=== PATIENT | female | born 1955 | race Hispanic/Latino ===

== ENCOUNTER 2017-09-09 13:13 | Emergency (ER) | payer OTHER ==
[~2017-09-09] VITALS: Ht 144.8 cm; Wt 97.1 kg
[~2017-09-09 13:13] MED LIST: ATORVASTATIN CA20 MG PO; ATORVASTATIN CA40 MG; CLOPIDOGREL75 MG PO; DICYCLOMINE; DICYCLOMINE PO; DOXAZOSIN PO; ENALAPRIL MALEA20 MG PO; FENOFIBRATE145 MG PO; GABAPENTIN300 MG PO; LASIX20 MG PO; METFORMIN HCL500 MG PO; METOPROLOL ER PO; NOVOLOG MI100 UNITS/ SQ; PANTOPRAZOLE SO40 MG PO; PEPCID20 MG PO; SIMVASTATIN40 MG PO; ULTRAM50 MG PO; VESICARE5 MG PO; ZOFRAN ODT4 MG PO
[2017-09-09] MEDS ORDERED: ACETAMINOPHEN 325 MG TAB PO ONE (13:45)
--- NOTE | 2017-09-09 14:24 | Diagnostic Imaging Report ---
History:Dizziness, near syncope 3 times, headache Comparison studies:CT head 06/27/2015 Technique: Axial images were obtained from the skull base to the vertex. Coronal and sagittal images reconstructed from the axial data. Intravenous contrast: None Findings: Scalp/skull: Right frontal scalp focal subcentimeter calcification. No fracture. Extra-axial spaces: No masses. No fluid collections. Brain sulci: Mildly prominent. Ventricles: Mild compensatory dilatation. No hydrocephalus. Parenchyma: Few hypodensities in the supratentorial white matter are small vessel ischemic changes. No masses, hemorrhage, acute or chronic cortical vascular insults. Sellar/suprasellar region: No abnormalities. Craniocervical junction: Patent foramen magnum. No Chiari one malformation. Incidental findings: Atherosclerotic calcifications in the carotid siphons . Mild exophthalmos. Impression: No acute abnormalities. Chronic findings: 1. Mild generalized volume loss. 2. Mild supratentorial white matter small vessel ischemic changes. Signed by: DR Kurt Mike M.D. on 09/09/2017 2:21 PM
[2017-09-09 14:55] LABS: BASOPHILS # (AUTO) 0.1 (0.0-0.1); BASOPHILS % 0.7 % (0.0-1.0); EOSINOPHILS # (AUTO) 0.3 (0.0-0.4); EOSINOPHILS % 3.7 % (0.0-6.0); HEMOGLOBIN 11.1 g/dL (12.0-16.0); LYMPHOCYTES # (AUTO) 1.9 (1.0-3.2); LYMPHOCYTES % 27.5 % (18.0-39.1); MEAN CORPUSCULAR HEMOGLOBIN 28.5 pg (28-32); MEAN CORPUSCULAR HGB CONC 32.6 g/dL (31-35); MEAN CORPUSCULAR VOLUME 87.4 fL (81-99); MONOCYTES # (AUTO) 0.5 (0.2-0.8); MONOCYTES % 6.5 % (4.4-11.3); NEUTROPHILS # (AUTO) 4.3 (2.1-6.9); NEUTROPHILS % 61.3 % (38.7-80.0); PLATELET COUNT 231 x10e3/uL (140-360); RED BLOOD COUNT 3.89 x10e6/uL (3.6-5.1); RED CELL DISTRIBUTION WIDTH 12.9 % (11.7-14.4)
[2017-09-09 15:07] LABS: PROTHROMBIN TIME 12.4 seconds (11.9-14.5)
[2017-09-09 15:08] LABS: PARTIAL THROMBOPLASTIN TIME 24.3 seconds (23.8-35.5)
[2017-09-09 15:17] LABS: ALBUMIN 3.5 g/dL (3.5-5.0); ALBUMIN/GLOBULIN RATIO 1.1 (0.8-2.0); ANION GAP 12.5 mmol/L (8-16); CALCIUM 9.8 mg/dL (8.4-10.2); CREATININE, SERUM 1.13 mg/dL (0.57-1.11); POTASSIUM 4.5 mmol/L (3.5-5.1)
[2017-09-09 16:51] VITALS: BP 166/69
== END 2017-09-09 17:03 | disposition home or self-care (01) ==
LOC: ER 13:13
DX: R51 Headache (principal); I10 Essential (primary) hypertension; E11.9 Type 2 diabetes mellitus without complications; J44.9 Chronic obstructive pulmonary disease, unspecified
CPT/HCPCS: 36415; 70450; 80053; 85025; 85610; 85730; 93005; 99284

== ENCOUNTER 2019-03-03 13:00 | Observation (INO) | payer OTHER ==
[~2019-03-03] VITALS: Ht 144.8 cm; Wt 98.2 kg
--- OUTSIDE RECORDS SUMMARY | 2019-03-03 13:05 | XMS REPORT ---
Author Author [facility] Address Unknown Phone Unavailable Care Team Providers Care Manager Social Services Name Role Phone Kaitlin VIVAS Unavailable Unavailable Payers Payer Name Policy Type Policy Number Effective Date Expiration Date Problems This patient has no known problems. Allergies, Adverse Reactions, Alerts Allergy Name Allergy Type Status Severity Reaction(s) Onset Date Inactive Date Treating Clinician Comments No Known Allergies DA Active U 2018-08-21 00:00:00 No Known Allergies DA Active U 2011-02-21 00:00:00 Medications This patient has no known medications. Results Test Description Test Time Test Comments Text Results Atomic Results Result Comments - CT HEAD/BRAIN W/O CONT 2018-08-31 14:29:00 Name: CAR ALEMAN [facility] : 1955 Age/S: 62 / F [address] [place] [address] Unit #: [id number] Loc: [place] [address] Phys: Juan Pastor MD Acct: [id number] Dis Date: Status: REG ER PHONE #: [phone] Exam Date: 08/31/2018 1410 FAX #: [phone] Reason: hx of stroke and felt weak EXAMS: CPT CODE: [id number] CT HEAD/BRAIN W/O CONT 08380 PROCEDURE: CT HEAD WITHOUT CONTRAST INDICATION: Weakness. Hypoglycemia. Hypertension. COMPARISON: None. TECHNIQUE: Noncontrast helical imaging performed skull base to the vertex. Multiplanar reformations are obtained. CT imaging performed at this location utilizes radiation dose optimization techniques which include one or more of the following: -Automated exposure control -Adjustment of the mA and/or kV according to patient size -Use of iterative reconstruction technique CT Radiation Dose DLP 419.70 mGy-cm FINDINGS: BRAIN PARENCHYMA: There are generalized involutional changes. Scattered areas of diminished attenuation in the cerebral white matter bilateral. Disease involves the white matter tracts. The cerebral cortical architecture is maintained. No intra-axial or extra-axial hemorrhage, mass lesion or mass effect. Calcified plaque cavernous carotid arteries and vertebral arteries. VENTRICLES: The ventricular system is normal. The basilar cisterns are normal. ORBITS, MASTOIDS AND PARANASAL SINUSES: The visualized orbits and paranasal sinuses are unremarkable. The mastoid air cells are clear. SKULL: The calvarium is intact. IMPRESSION: 1. No hemorrhage, mass lesion or evidence of acute infarct. 2. Chronic microvascular ischemic changes. If there is continued clinical concern, further imaging options would include MRI. SL: [id number] at 1429 Reported and signed by: Cristofer Cabrera M.D. PAGE 1 Signed Report (CONTINUED) Name: CAR THOMPSON [facility] : 1955 Age/S: 62 / F [address] [place] [address] Unit #: [id number] Loc: [place] [address] Phys: Juan Pastor MD Acct: [id number] Dis Date: Status: REG ER PHONE #: [phone] Exam Date: 08/31/2018 1410 FAX #: [phone] Reason: hx of stroke and felt weak EXAMS: CPT CODE: [id number] CT HEAD/BRAIN W/O CONT 49816 <Continued> CC: Soha Rodriguez MD; Juan Pastor MD Technologist:Justine Castro RT(R)(CT); Aguila Riddle CTDI: DLP: Trnscb Date/Time: 08/31/2018 (1429) Khang Orig Print D/T: S: 08/31/2018 (1113) CTDI: DLP: PAGE 2 Signed Report B-TYPE NATRIURETIC PEPTIDE 2018-08-31 13:40:00 B-TYPE NATRIURETIC PEPTIDE (test code=BNP) 44.2 PG/ML 0-100 CBC W/AUTO [id number] 12:52:00* Test Item Value Reference Range Comments WHITE BLOOD CELL (test code=WBC) 9.88 x10 3/uL 4.5-11.0 RED BLOOD CELL (test code=RBC) 3.74 x10 6/uL 3.54-5.02 HEMOGLOBIN (test code=HGB) 10.4 g/dL 11.0-15.0 HEMATOCRIT (test code=HCT) 32.8 % 33.0-45.0 MEAN CELL VOLUME (test code=MCV) 87.7 fL 81.0-99.0 MEAN CELL HGB (test code=MCH) 27.8 pg 27.0-33.0 MEAN CELL HGB CONCETRATION (test code=MCHC) 31.7 g/dL 33.0-37.0 RED CELL DISTRIBUTION WIDTH CV (test code=RDW) 13.2 % 11.5-14.5 RED CELL DISTRIBUTION WIDTH SD (test code=RDW-SD) 42.1 fL 37.0-54.0 PLATELET COUNT (test code=PLT) 272 x10 3/uL 150-400 MEAN PLATELET VOLUME (test code=MPV) 10.9 fL 7.0-9.0 NEUTROPHIL % (test code=NT%) 73.9 % 56.0-77.0 IMMATURE GRANULOCYTE % (test code=IG%) 0.3 % 0.0-2.0 LYMPHOCYTE % (test code=LY%) 15.3 % 14.0-32.0 MONOCYTE % (test code=MO%) 6.7 % 4.8-9.0 EOSINOPHIL % (test code=EO%) 3.3 % 0.3-3.7 BASOPHIL % (test code=BA%) 0.5 % 0.0-2.0 NUCLEATED RBC % (test code=NRBC%) 0.0 % 0-0 NEUTROPHIL # (test code=NT#) 7.30 x10 3/uL 2.0-7.6 IMMATURE GRANULOCYTE # (test code=IG#) 0.03 x10 3/uL 0.00-0.03 LYMPHOCYTE # (test code=LY#) 1.51 x10 3/uL 1.0-3.8 MONOCYTE # (test code=MO#) 0.66 x10 3/uL 0.1-0.8 EOSINOPHIL # (test code=EO#) 0.33 x10 3/uL 0.0-0.2 BASOPHIL # (test code=BA#) 0.05 x10 3/uL 0.0-0.2 NUCLEATED RBC # (test code=NRBC#) 0.00 x10 3/uL 0.0-0.1 MANUAL DIFF REQUIRED (test code=MDIFF) NO TROPONIN-I [id number] 12:47:00* Test Item Value Reference Range Comments TROPONIN-I RAPID (test code=TROPIRAP) 0.00 ng/mL 0.00-0.08 Performed by certified cold molding press operator at [facility] Negative: <=0.08 Positive: >=0.09An elevated troponin value alone is not sufficient todiagnose a myocardial infarction. Rather, the patient sclinical presentation (history, physical exam) and ECGshould be used in conjunction with troponin in thediagnostic evaluation of suspected myocardial infarction. Aserial sampling protocol is recommended to facilitate the identification of temporal changes in troponin levels characteristic of [place]. - XR CHEST 1 [id number] 12:34:00 FAX: Eddy Rodriguez Si [phone] [place]: St: PRE FAX: Juan Dye MD [phone] Name: CAR ALEMAN [facility] : 1955 Age/S: 62/F [address] [place] [address] Unit #: [id number] Loc: [address] [place] [id number] Phys: Juan Pastor MD Acct: [id number] Dis Date: Status: PRE ER PHONE #: [phone] Exam Date: 08/31/2018 1223 FAX #: [phone] Reason: Chest Pain EXAMS: CPT CODE: [id number] XR CHEST 1 V 44053 CHEST 1 VIEW: 08/31/2018 COMPARISON: October 01, 2011 CLINICAL HISTORY: Chest Pain FINDINGS: Cardiomediastinal silhouette is mildly prominent but stable in size. Lung volumes are low. There is minor bilateral interstitial prominence which may be secondary to the poor inspiration. Mild interstitial edema/interstitial pneumonitis is not excluded. No focal consolidation is seen. No evidence of pneumothorax and/or pneumomediastinum. IMPRESSION: Expiratory chest with mild bilateral vasc ular/interstitial prominence. Please see above for details. Mild cardiomegaly. at 1234 Reported and signed by: Lev ruth M.D. CC: Soha Rodriguez MD; Juan Pastor MD Technologist: Mark Jay RT(R) Trnscrd Date/Time/By: 08/31/2018 (1233) : By: [email or web address] Orig Print D/T: S: (1961) PAGE 1 Signed Repo rt CHEMISTRY 8 [id number] 12:30:00* Test Item Value Reference Range Comments ISTAT-SODIUM (test code=NAP) MMOL/L 134-147 ISTAT-POTASSIUM (test code=KP) MMOL/L 3.4-5.0 ISTAT-CHLORIDE (test code=CLP) MMOL/L 100-108 ISTAT CARBON DIOXIDE (test code=ISTAT-CO2) mmol/L 21-33 ISTAT CALCIUM IONIZED (test code=ISTAT-FILIPE) MG/DL 1.12-1.32 ISTAT-GLUCOSE (test code=GLUP) MG/DL 70-110 ISTAT-BUN (test code=BUNP) MG/DL 7-18 BEDSIDE CREATININE (test code=CREATBED) MG/DL 0.6-1.3 GLOMERULAR FILTRATION RATE POC (test code=GFRBED) 40 ML/MIN CHEMISTRY 8 [id number] 12:30:00* Test Item Value Reference Range Comments ISTAT-SODIUM (test code=NAP) 140 MMOL/L 134-147 ISTAT-POTASSIUM (test code=KP) 4.2 MMOL/L 3.4-5.0 ISTAT-CHLORIDE (test code=CLP) 102 MMOL/L 100-108 Performed by certified cold molding press operator at [facility] ISTAT CARBON DIOXIDE (test code=ISTAT-CO2) 29.0 mmol/L 21-33 ISTAT CALCIUM IONIZED (test code=ISTAT-FILIPE) 1.16 MG/DL 1.12-1.32 ISTAT-GLUCOSE (test code=GLUP) 196 MG/DL 70-110 ISTAT-BUN (test code=BUNP) 27 MG/DL 7-18 BEDSIDE CREATININE (test code=CREATBED) 1.4 MG/DL 0.6-1.3 GLOMERULAR FILTRATION RATE POC (test code=GFRBED) 40 ML/MIN [id number] 12:25:00* Test Item Value Reference Range Comments GLUBED (test code=GLUBED) 50 MG/DL 70-110 Performed by certified cold molding press operator at [facility] [id number] 06:04:00* Test Item Value Reference Range Comments GLUBED (test code=GLUBED) 101 MG/DL 70-110 Performed by certified cold molding press operator at [facility] URINALYSIS [id number] 05:07:00* Test Item Value Reference Range Comments UA COLOR (test code=COLU) YELLOW YEL/STRAW UA APPEARANCE (test code=APPU) CLOUDY CLEAR UA GLUCOSE DIPSTICK (test code=DGLUU) 1+ NEGATIVE UA BILIRUBIN DIPSTICK (test code=BILU) NEGATIVE NEGATIVE UA KETONE DIPSTICK (test code=KETU) NEGATIVE NEGATIVE UA SPECIFIC GRAVITY (test code=SGU) 1.008 1.005-1.030 UA BLOOD DIPSTICK (test code=AB) 1+ NEGATIVE UA PH DIPSTICK (test code=DOROTHY) 5.0 5.0-7.0 UA PROTEIN DIPSTICK (test code=PROU) 2+ NEGATIVE UA UROBILINIOGEN DIPSTICK (test code=URO) 0.2 mg/dL 0.2-1.0 UA NITRITE DIPSTICK (test code=YONY) NEGATIVE NEGATIVE UA LEUKOCYTE ESTERASE DIPSTICK (test code=LEUU) NEGATIVE NEGATIVE UA WBC (test code=WBCU) 4-9 WBC/HPF 0-3 UA RBC (test code=RBCU) 0-3 RBC/HPF 0-3 UA BACTERIA (test code=BACU) 1+ /HPF NONE SEEN UA SQUAMOUS CELLS (test code=SQU) 0-5 /HPF NONE SEEN UA YEAST (BUDDING) (test code=YEASTUBD) 3+ /HPF NONE COMPREHENSIVE METABOLIC [id number] 04:38:00* Test Item Value Reference Range Comments SODIUM (test code=NA) 144 mEq/L 134-147 POTASSIUM (test code=K) 4.1 mEq/L 3.4-5.0 CHLORIDE (test code=CL) 110 mEq/L 100-108 CARBON DIOXIDE (test code=CO2) 31 mEq/L 21-33 ANION GAP (test code=GAP) 7 0-20 GLUCOSE (test code=GLU) 111 mg/dL 70-110 BLOOD UREA NITROGEN (test code=BUN) 33 mg/dL 7-18 GLOMERULAR FILTRATION RATE (test code=GFR) 41.5 80-90 Units of measure=ml/min/1.73 m2 CREATININE (test code=CREAT) 1.3 mg/dL 0.6-1.3 TOTAL PROTEIN (test code=PROT) 7.0 g/dL 6.4-8.2 ALBUMIN (test code=ALB) 3.40 g/dL 3.4-5.0 CALCIUM (test code=CA) 8.7 mg/dL 8.0-10.5 BILIRUBIN TOTAL (test code=BILT) 0.20 mg/dL 0.0-1.0 SGOT/AST (test code=AST) 20 IUnit/L 15-37 SGPT/ALT (test code=ALT) 21 IUnit/L 15-65 ALKALINE PHOSPHATASE TOTAL (test code=ALKP) 88 IUnit/L 20-125 CBC W/AUTO [id number] 04:13:00* Test Item Value Reference Range Comments WHITE BLOOD CELL (test code=WBC) 9.20 x10 3/uL 4.5-11.0 RED BLOOD CELL (test code=RBC) 3.96 x10 6/uL 3.54-5.02 HEMOGLOBIN (test code=HGB) 11.1 g/dL 11.0-15.0 HEMATOCRIT (test code=HCT) 35.3 % 33.0-45.0 MEAN CELL VOLUME (test code=MCV) 89.1 fL 81.0-99.0 MEAN CELL HGB (test code=MCH) 28.0 pg 27.0-33.0 MEAN CELL HGB CONCETRATION (test code=MCHC) 31.4 g/dL 33.0-37.0 RED CELL DISTRIBUTION WIDTH CV (test code=RDW) 13.2 % 11.5-14.5 RED CELL DISTRIBUTION WIDTH SD (test code=RDW-SD) 42.9 fL 37.0-54.0 PLATELET COUNT (test code=PLT) 259 x10 3/uL 150-400 MEAN PLATELET VOLUME (test code=MPV) 10.8 fL 7.0-9.0 NEUTROPHIL % (test code=NT%) 64.3 % 56.0-77.0 IMMATURE GRANULOCYTE % (test code=IG%) 0.3 % 0.0-2.0 LYMPHOCYTE % (test code=LY%) 22.4 % 14.0-32.0 MONOCYTE % (test code=MO%) 8.3 % 4.8-9.0 EOSINOPHIL % (test code=EO%) 4.2 % 0.3-3.7 BASOPHIL % (test code=BA%) 0.5 % 0.0-2.0 NUCLEATED RBC % (test code=NRBC%) 0.0 % 0-0 NEUTROPHIL # (test code=NT#) 5.91 x10 3/uL 2.0-7.6 IMMATURE GRANULOCYTE # (test code=IG#) 0.03 x10 3/uL 0.00-0.03 LYMPHOCYTE # (test code=LY#) 2.06 x10 3/uL 1.0-3.8 MONOCYTE # (test code=MO#) 0.76 x10 3/uL 0.1-0.8 EOSINOPHIL # (test code=EO#) 0.39 x10 3/uL 0.0-0.2 BASOPHIL # (test code=BA#) 0.05 x10 3/uL 0.0-0.2 NUCLEATED RBC # (test code=NRBC#) 0.00 x10 3/uL 0.0-0.1 MANUAL DIFF REQUIRED (test code=MDIFF) NO [id number] 04:03:00* Test Item Value Reference Range Comments GLUBED (test code=GLUBED) 102 MG/DL 70-110 Performed by certified cold molding press operator at [facility] CT BRAIN WO [facility] [address] [address] Patient Name: CAR ALEMAN MR #: [id number] : 1955 Age/Sex: 61/F Req #: [id number] Adm Physician: Ordered by: ALISSON IBRAHIM NP Report #: [id number] Location: ER Room/Bed: Procedure: [id number] CT/CT BRAIN WO Exam Da te: 09/09/17 Exam Time: 1340 REPORT STATUS: Sig tank History:Dizziness, near syncope 3 times, headache Comparison studies:CT head 06/27/2015 Technique: Axial images were obtained from the skull base to the vertex. Coronal and sagittal images reconstructed from the axial data. Intravenous contrast: None Findings: Scalp/skull: Right frontal scalp focal subcentimeter calcification. No fracture. Extra-axial spaces: No masses. No fluid collections. Brain sulci: Mildly prominent. Ventri cles: Mild compensatory dilatation. No hydrocephalus. Parenchyma: Few hy podensities in the supratentorial white matter are small vessel ischemic pepper es. No masses, hemorrhage, acute or chronic cortical vascular insults. Sell ar/suprasellar region: No abnormalities. Craniocervical junction: Patent mejia en magnum. No Chiari one malformation. Incidental findings: Atherosclero tic calcifications in the carotid siphons . Mild exophthalmos. Impress ion: No acute abnormalities. Chronic findings: 1. Mild generalized volume loss. 2. Mild supratentorial white matter small vessel ischemic change s. Signed by: DR Kurt Mike M.D. on 09/09/2017 2:21 PM Dict ated By: KURT MIGUEL MD 1421 Transcribed By: ARIS on 09/09/17 1421 COPY TO: ALISSON JOSHI [employer]ATERPROO[employer] COATING MACHINE TENDER
[2019-03-03] MEDS ORDERED: SODIUM CHLORIDE 0.9% 1000ML 1,000 ML IV STA ×2 (14:14→16:10)
[2019-03-03] MEDS ORDERED: ONDANSETRON HCL INJ 2MG/ML 2ML 2 MG/ML VIAL IV ONE ×2 (14:30→16:10)
[2019-03-03 15:09] LABS: BILIRUBIN,URINE NEGATIVE (NEGATIVE); CLARITY,URINE CLEAR (CLEAR); COLOR,URINE YELLOW (YELLOW); KETONES,URINE NEGATIVE (NEGATIVE); LEUKOCYTE ESTERASE ,URINE NEGATIVE (NEGATIVE); NITRITE,URINE NEGATIVE (NEGATIVE); PROTEIN,URINE DIPSTICK 2+ (NEGATIVE); URINE UROBILINOGEN 0.2 mg/dL (0.2 - 1)
[2019-03-03 15:26] LABS: BACTERIA,URINE RARE /HPF; EPITHELIAL CELLS,URINE RARE /LPF; TRANSITIONAL EPI CELLS,URINE RARE
--- NOTE | 2019-03-03 16:02 | Diagnostic Imaging Report ---
Chest, 1 view, 03/03/2019. History: Shortness of breath. Comparison: None available. Findings: The cardiac silhouette is enlarged but the pulmonary vasculature is within normal limits for a portable exam. There is no focal consolidation or pleural effusion. There are no acute osseous or soft tissue abnormalities. Impression: Mild cardiomegaly without acute pulmonary abnormality. Signed by: Ryan Mauro on 03/03/2019 3:59 PM
[2019-03-03] MEDS ORDERED: PIPER-TAZ 3.375 GM 50 ML IV ONE (16:10)
[2019-03-03] MEDS ORDERED: MORPHINE SULFATE 2 MG/ML SYR 1ML IV ONE (16:10)
[2019-03-03] MEDS ORDERED: PANTOPRAZOLE 40 MG 10ML VIAL IV ONE (16:10)
[2019-03-03] MEDS ORDERED: DIATRIZOATE MEGL/DIATRIZOA SOD 30 ML BTL PO ONE (16:19)
[2019-03-03] MEDS ORDERED: MORPHINE SULFATE 2 MG/ML SYR 1ML IV PRN (16:30)
[2019-03-03] MEDS ORDERED: ONDANSETRON HCL INJ 2MG/ML 2ML 2 MG/ML VIAL IV PRN (16:30)
[2019-03-03] MEDS ORDERED: DEXTROSE 50% SYRINGE 50 ML IV PRN (16:30)
[2019-03-03 16:35] LABS: BASOPHILS % 0.4 % (0.0-1.0); EOSINOPHILS # (AUTO) 0.1 (0.0-0.4); EOSINOPHILS % 0.8 % (0.0-6.0); HEMOGLOBIN 10.9 g/dL (12.0-16.0); LYMPHOCYTES # (AUTO) 1.3 (1.0-3.2); LYMPHOCYTES % 13.7 % (18.0-39.1); MEAN CORPUSCULAR HEMOGLOBIN 28.7 pg (28-32); MEAN CORPUSCULAR VOLUME 86.8 fL (81-99); MONOCYTES # (AUTO) 0.5 (0.2-0.8); MONOCYTES % 4.9 % (4.4-11.3); NEUTROPHILS # (AUTO) 7.4 (2.1-6.9); NEUTROPHILS % 79.8 % (38.7-80.0); PLATELET COUNT 282 x10e3/uL (140-360); RED CELL DISTRIBUTION WIDTH 12.8 % (11.7-14.4)
[2019-03-03 16:44] LABS: INR 1.02; PARTIAL THROMBOPLASTIN TIME 27.4 seconds (23.8-35.5); PROTHROMBIN TIME 13.9 seconds (11.9-14.5)
[2019-03-03 16:55] LABS: ALBUMIN 3.7 g/dL (3.5-5.0); ALBUMIN/GLOBULIN RATIO 1.1 (0.8-2.0); ANION GAP 16.1 mmol/L (8-16); CALCIUM 10.1 mg/dL (8.4-10.2); CREATININE, SERUM 0.97 mg/dL (0.57-1.11); POTASSIUM 4.1 mmol/L (3.5-5.1)
[2019-03-03 17:01] LABS: CREATINE KINASE MB 1.4 ng/mL (0-5.0)
--- NOTE | 2019-03-03 17:22 | Diagnostic Imaging Report ---
EXAMINATION: Right upper quadrant ultrasound CLINICAL INDICATION: Pain COMPARISON: None DISCUSSION: Transverse and longitudinal images of the right upper quadrant were obtained. The liver is normal in size measuring 15centimeters in length in the right midclavicular line and shows normal echogenicity. No focal masses are seen in the liver. There is no intrahepatic biliary dilatation. The common bile duct is normal in caliber and measures 0.4 cm. The main portal vein is normal in caliber and measures 0.9 cm with normal hepatopetal flow. Multiple gallstones. No wall thickening or inflammatory change. The visualized portions of the pancreatic body are unremarkable. The right kidney measures 11.4 centimeters in length. There is normal renal cortical echogenicity and no hydronephrosis, mass or shadowing calculi. The visualized portions of the great vessels are normal. No free fluid is seen. IMPRESSION: Cholelithiasis without cholecystitis Signed by: Dr. Charly Tejada M.D. on 03/03/2019 5:19 PM
[2019-03-03] MEDS: INSULIN REGULAR, HUMAN 100 UNIT/1 ML 3ML VIAL SQ SCH ×2 (17:38→21:17)
[2019-03-03] MEDS: SODIUM CHLORIDE 0.9% 1000ML 1,000 ML IV SCH (17:40)
--- NOTE | 2019-03-03 18:25 | Diagnostic Imaging Report ---
EXAMINATION: CT of the abdomen and pelvis with contrast. TECHNIQUE: Helical CT images of the abdomen and pelvis were performed from the lung bases to the lesser trochanters after the intravenous administration of 100 cc of Omnipaque 300 and the oral administration of enteric contrast. Coronal and sagittal reformatted images were obtained.Dose modulation, iterative reconstruction, and/or weight based adjustment of the mA/kV was utilized to reduce the radiation dose to as low as reasonably achievable. COMPARISON: None. CLINICAL HISTORY:Abdominal pain DISCUSSION: ABDOMEN/PELVIS: LOWER THORAX:Cardiomegaly with coronary artery calcifications. HEPATOBILIARY: No focal hepatic lesions. No intra-or extrahepatic biliary ductal dilation. Cholelithiasis SPLEEN: No splenomegaly. PANCREAS: No focal masses or ductal dilatation. ADRENALS: No adrenal nodules. KIDNEYS/URETERS: No hydronephrosis, stones, or solid mass lesions. PELVIC ORGANS/BLADDER: The bladder is normal. PERITONEUM/RETROPERITONEUM: No free air or fluid. LYMPH NODES: No intra-abdominal, retroperitoneal, pelvic or inguinal lymphadenopathy. VESSELS: The celiac trunk,superior and inferior mesenteric and bilateral renal arteries are patent The portal, superior mesenteric and splenic veins are patent. GI TRACT: No distention or wall thickening. BONES AND SOFT TISSUE: No bony destructive lesions. No soft tissue abnormalities. IMPRESSION: Cholelithiasis. No acute CT finding. Signed by: Dr. Charly Tejada M.D. on 03/03/2019 6:22 PM
[2019-03-03] MEDS ORDERED: SODIUM CHLORIDE 0.9% 50ML 50 ML ONE (20:34)
[2019-03-03] MEDS ORDERED: IOPAMIDOL 370 MG/ML 200 ML INFUS..BTL INJ ONE (20:34)
[2019-03-03 21:50] VITALS: BP 160/67
--- NOTE | 2019-03-03 21:50 | NUR ---
Patient was brought from ER in a stretcher with c/o abd.pain nausea and also h/o bleeding from left ear.assessment done.aaox3.ambulatory.on nasal cannula 4l o2.no resp.distress.has headache. returned the call.advised npo.oriented to the unit,bed locked and in lowest position.phone and call light within reach.instructed to call for assistance as needed.family member at bed side.
[2019-03-03] MEDS ORDERED: PIPER-TAZ 3.375 GM / NS 50ML IV SCH (22:00)
[2019-03-03] MEDS: PIPER-TAZ 3.375 GM 50 ML IV SCH (22:13)
[2019-03-03 22:17] VITALS: BP 166/67
[2019-03-03] MEDS: ACETAMINOPHEN 1000 MG/100 ML IV PRN (23:28)
--- NOTE | 2019-03-04 00:30 | NUR ---
BP NOTED 181/74.PAGED TO ,WAITING FOR REPLY.
[2019-03-04 00:55] VITALS: BP 181/74
--- NOTE | 2019-03-04 02:00 | NUR ---
BP CHECKED 162/74. DID NOT CALL BACK.
[2019-03-04 04:18] VITALS: BP 159/72
[2019-03-04] MEDS: SODIUM CHLORIDE 0.9% 1000ML 1,000 ML IV SCH ×3 (04:24→16:16)
[2019-03-04] MEDS: PIPER-TAZ 3.375 GM 50 ML IV SCH ×2 (06:00→14:29)
[2019-03-04 06:37] LABS: BASOPHILS # (AUTO) 0.1 (0.0-0.1); BASOPHILS % 0.6 % (0.0-1.0); EOSINOPHILS # (AUTO) 0.3 (0.0-0.4); EOSINOPHILS % 2.7 % (0.0-6.0); HEMATOCRIT 29.7 % (34.2-44.1); HEMOGLOBIN 9.6 g/dL (12.0-16.0); LYMPHOCYTES # (AUTO) 2.3 (1.0-3.2); LYMPHOCYTES % 22.5 % (18.0-39.1); MEAN CORPUSCULAR HEMOGLOBIN 28.3 pg (28-32); MEAN CORPUSCULAR HGB CONC 32.3 g/dL (31-35); MEAN CORPUSCULAR VOLUME 87.6 fL (81-99); MONOCYTES # (AUTO) 0.6 (0.2-0.8); NEUTROPHILS % 67.9 % (38.7-80.0); PLATELET COUNT 242 x10e3/uL (140-360); RED BLOOD COUNT 3.39 x10e6/uL (3.6-5.1); RED CELL DISTRIBUTION WIDTH 12.9 % (11.7-14.4)
--- NOTE | 2019-03-04 06:55 | NUR ---
Bed side shift report given to oncoming Rn.stable condition.
--- NOTE | 2019-03-04 07:00 | NUR ---
RECEIVED PATIENT RESTING IN BED NO SIGNS OF DISTRESS. BED LOW, WHEELS LOCKED, SIDE RAILS X2. CALL LIGHT IN REACH, FAMILY AT BEDSIDE. WILL CONTINUE TO MONITOR PATIENT.
[2019-03-04 07:07] LABS: ALBUMIN 2.8 g/dL (3.5-5.0); ANION GAP 13.7 mmol/L (8-16); CALCIUM 9.1 mg/dL (8.4-10.2); CREATININE, SERUM 1.27 mg/dL (0.57-1.11); POTASSIUM 3.7 mmol/L (3.5-5.1)
[2019-03-04] MEDS: INSULIN REGULAR, HUMAN 100 UNIT/1 ML 3ML VIAL SQ SCH ×3 (07:30→16:30)
[2019-03-04 08:36] VITALS: BP 180/74
[2019-03-04] MEDS ORDERED: HYDRALAZINE HCL 20 MG/ML VIAL IV PRN (09:00)
[2019-03-04] MEDS ORDERED: PANTOPRAZOLE 40 MG 10ML VIAL IV SCH (09:00)
[2019-03-04] MEDS: ACETAMINOPHEN 1000 MG/100 ML IV PRN (09:21)
[2019-03-04 09:23] VITALS: BP 180/74
--- NOTE | 2019-03-04 10:16 | Consultation ---
DATE OF CONSULTATION: 03/04/2019 REASON FOR CONSULTATION: Right upper quadrant pain and gallstones. HISTORY OF PRESENT ILLNESS: The patient is a 63-year-old female, admitted to the hospital complaining of abdominal pain, nausea, and vomiting. The pain was described as in the right upper quadrant, moderate, no radiation. She is a known case of gallstones in the past. She was treated medically without resolution of the gallstones as usually is the case. The patient at this time is afebrile. White count is normal. She has had normal white count. Liver chemistries are normal. The ultrasound and the CT scan reveal gallstones. No ductal dilatation. PAST MEDICAL HISTORY: Significant for morbid obesity, diabetes, hypertension, and sleep apnea. PAST SURGICAL HISTORY: No previous surgery. PHYSICAL EXAMINATION: GENERAL: A 63-year-old obese female, in no acute distress. HEAD, EYES, EARS, NOSE, AND THROAT: No acute process. ABDOMEN: Soft and nontender. There are no scars. EXTREMITIES: No clubbing, cyanosis, or edema. LABORATORY DATA: Admission labs have been discussed as well as x-rays. ASSESSMENT: A 63-year-old morbidly obese female with a history of gallstones, chronic cholecystitis, admitted with biliary colic. At this time, I have discussed the options with the patient and her daughter, laparoscopic cholecystectomy, possible open cholecystectomy if she is medically cleared. The other option is to continue nonsurgical treatment of her gallstones and observation and diet. The patient wishes to discuss with the family the options. I will discuss with Dr. Gonzalez and if she is medically cleared and the patient wishes, we will proceed with laparoscopic cholecystectomy. She clearly understands that because of her overall condition and multiple medical problems, she is at high risk. Thank you very much for the courtesy of this consultation. MD IVÁN Barrera/ROB /[id number] MTDIshan
[2019-03-04 11:53] VITALS: BP 198/79
[2019-03-04] MEDS ORDERED: CLONIDINE HCL 0.2 MG TAB PO PRN (12:30)
[2019-03-04] MEDS ORDERED: ACETAMINOPHEN 325 MG TAB PO PRN (14:30)
[2019-03-04 16:05] VITALS: BP 159/67
--- NOTE | 2019-03-04 16:49 | NUR ---
REMOVED PATIENTS IV. CATHETER TIP INTACT AND PRESSURE DRESSING APPLIED.
--- NOTE | 2019-03-04 16:50 | NUR ---
PATIENT DISCHARGED FROM FACILITY. PATIENT GATHERED ALL PERSONAL BELONGINGS, DISCHARGE INSTRUCTIONS, AND FOLLOW UP INFORMATION. LEFT UNIT IN WHEELCHAIR AND WENT HOME VIA PRIVATE AUTO. NO SIGNS OF DISTRESS WHEN LEAVING FACILITY.
== END 2019-03-04 16:50 | disposition home or self-care (01) ==
LOC: ER 13:00 → INTOOBSV 16:23 → ERHOLD 16:23 → MED/SURG 21:44
PROVIDERS: ADMIT Internal Medicine; ATTEND Internal Medicine
DX: K80.10 Calculus of gallbladder with chronic cholecystitis without obstruction (principal); E78.5 Hyperlipidemia, unspecified; E11.22 Type 2 diabetes mellitus with diabetic chronic kidney disease; I12.9 Hypertensive chronic kidney disease with stage 1 through stage 4 chronic kidney disease, or unspecified chronic kidney disease; G47.30 Sleep apnea, unspecified; N18.3 Chronic kidney disease, stage 3 (moderate); E66.01 Morbid (severe) obesity due to excess calories; Z68.42 Body mass index [BMI] 45.0-49.9, adult; Z99.81 Dependence on supplemental oxygen; Z79.4 Long term (current) use of insulin
CPT/HCPCS: 36415 ×2; 71045; 74177; 76705; 80053 ×2; 81001; 82150; 82550; 82553; 82948 ×2; 83690 ×2; 83880; 84484; 85025 ×2; 85610; 85730; 87086; 93005; 99284; C9113 ×2; G0378 ×2; J0131 ×2; J0360; J2270; J2405; J2543 ×2; J7030 ×2; Q9967

== ENCOUNTER 2020-11-04 15:40 | Emergency (ER) | payer OTHER ==
[~2020-11-04] VITALS: Ht 144.8 cm; Wt 98.0 kg
[2020-11-04] MEDS ORDERED: KETOROLAC TROMETHAMINE 60 MG/2 ML VIAL IM ONE (16:15)
[2020-11-04] MEDS ORDERED: DEXAMETHASONE SOD PHOS 10 MG/1 ML VIAL IM NR (16:15)
[2020-11-04] MEDS ORDERED: LIDOCAINE 4% PATCH TP ONE (16:15)
[2020-11-04] MEDS ORDERED: HYDROCODONE/APAP 5MG-325MG TAB PO ONE (16:15)
== END 2020-11-04 16:52 | disposition home or self-care (01) ==
LOC: ER 16:09
DX: M54.41 Lumbago with sciatica, right side (principal); Z95.5 Presence of coronary angioplasty implant and graft; I10 Essential (primary) hypertension; E11.9 Type 2 diabetes mellitus without complications; E78.5 Hyperlipidemia, unspecified; J44.9 Chronic obstructive pulmonary disease, unspecified; N18.9 Chronic kidney disease, unspecified; G47.30 Sleep apnea, unspecified; Z99.81 Dependence on supplemental oxygen; E66.01 Morbid (severe) obesity due to excess calories
CPT/HCPCS: 99283; J1100; J1885